=== PATIENT | male | born 1980 | race Two or more races ===

== ENCOUNTER 2017-05-15 16:46 | Emergency (ER) | payer MEDICAID ==
[~2017-05-15] VITALS: Ht 180.3 cm; Wt 79.4 kg
[~2017-05-15 16:46] MED LIST: NKM; NORCO 5-325 TA1 EACH ORAL
[2017-05-15] MEDS ORDERED: Norco 5mg/325mg tab ORAL ONE (17:15)
[2017-05-15 17:43] VITALS: BP 105/53
[2017-05-15] MEDS ORDERED: ACETAMINOPHEN-1 EAC1 ORAL (19:12)
[2017-05-15] MEDS ORDERED: SEROQUEL XR300 MG ORAL (19:12)
[2017-05-15 19:22] VITALS: BP 105/53
--- NOTE | 2017-05-15 21:35 | Emergency Room Report ---
History of Present Illness General Chief Complaint: Medication Refill Source: Patient, EMS Present Illness HPI The patient is a 36-year-old male with Hx of schizophrenia brought in by EMS for back pain and medication refill. He denies any recent injury. He states that he has run out of his medications. He is unsure of the dose of Seroquel that usually takes. Pain is a 10 out of 10 dull ache to the mid lower back and is worse with walking. He denies any radiating pain. He denies any other symptoms including nausea, vomiting, fever, chills, chest pain, shortness of breath, abdominal pain, Numbness Allergies: Coded Allergies: PENICILLINS (Unverified Allergy, Unknown, 05/15/17) Patient History Past Medical History: see triage record Past Surgical History: other Reviewed Nursing Documentation: PMH: Agreed, PSxH: Agreed Nursing Documentation-PMH Past Medical History: No History, Except For History Of Psychiatric Problem: Yes Hx Cerebrovascular Accident: Yes - Drug induced CVA 2 years ago Review of Systems All Other Systems: negative except mentioned in HPI Physical Exam Vital Signs Date Time Temp Pulse Resp B/P (MAP) Pulse Ox O2 Delivery O2 Flow Rate FiO2 05/15/17 16:41 98.6 88 20 105/53 99 Room Air Sp02 EP Interpretation: reviewed, normal General Appearance: no apparent distress, alert, GCS 15, non-toxic Head: normocephalic, atraumatic Eyes: bilateral eye normal inspection, bilateral eye PERRL ENT: hearing grossly normal, normal pharynx, no angioedema, normal voice Neck: full range of motion, supple/symm/no masses Respiratory: chest non-tender, lungs clear, normal breath sounds, speaking full sentences Cardiovascular #1: regular rate, rhythm, no edema Musculoskeletal: back normal, gait/station normal, normal range of motion, tender - bilat lumbar paraspinal muscles Neurologic: alert, responsive, motor strength/tone normal, sensory intact, speech normal Psychiatric: memory normal, no suicidal/homicidal ideation, no delusions Skin: normal color, no rash, warm/dry, well hydrated Medical Decision Making PA Attestation Dr. Roper is my supervising physician. Patient management was discussed with my supervising physician Diagnostic Impression: Primary Impression: Medication refill Additional Impression: Chronic back pain Qualified Codes: M54.5 - Low back pain; G89.29 - Other chronic pain ER Course The patient is a 36-year-old male with Hx of schizophrenia brought in by EMS for back pain and medication refill Ddx considered include but not limited to lumbar strain, degenerative disease, chronic pain, narcotic dependency, psychosis, among others PE: NAD Alert and oriented x3 Back: No obvious deformity. No midline tenderness or step-offs. There is bilateral paraspinal tenderness to palpation. Normal gait. The patient is given pain medication here upon reevaluation, he is sleeping. In no distress He is given time to rest in the emergency department. He is then discharged home with pain medication and refill of Seroquel. He needs to follow up with psychiatry. He is given information for [facility] Last Vital Signs Date Time Temp Pulse Resp B/P (MAP) Pulse Ox O2 Delivery O2 Flow Rate FiO2 05/15/17 19:22 98.6 82 20 105/53 99 Room Air Status: improved Disposition: HOME, SELF-CARE Condition: Improved Scripts Quetiapine Fumarate (SEROQUEL XR) 300 Mg Tab.er.24h 300 MG ORAL DAILY, #30 TAB Prov: DARIANA HERNANDEZ P.A. 05/15/17 Acetaminophen With Codeine (T#3) (TYLENOL #3 TAB*) Y Tab 1 TAB ORAL Q6H Y for For Pain, #10 TAB Prov: DARIANA HERNANDEZ P.A. 05/15/17 Patient Instructions: Medicine Refill at the Emergency Department, Back Pain, Adult Additional Instructions: I discussed my findings with the patient. All questions and concerns have been answered. Treatment and medication compliance have been addressed. I advised the patient that they need to follow up with PMD in 3-5 days. Return to ED if symptoms worsen, new symptoms arise, or if needed for any reason. Patient verbalized understanding of discharge instructions. Please see psychiatry as soon as possible for further evaluation and treatment DARIANA HERNANDEZ May 15, 2017 21:34
== END 2017-05-15 19:32 | disposition home or self-care (01) ==
LOC: EDBD 16:46 → EMR 17:20
DX: Z76.0 Encounter for issue of repeat prescription (principal); G89.29 Other chronic pain; M54.9 Dorsalgia, unspecified; F20.9 Schizophrenia, unspecified; Z86.73 Personal history of transient ischemic attack (TIA), and cerebral infarction without residual deficits; Z88.0 Allergy status to penicillin
CPT/HCPCS: 99282